=== PATIENT | male | born 1955 | race Caucasian/White ===

== ENCOUNTER → 2021-09-05 | Outpatient (CLI) | payer MEDICARE, BC, SELFPAY ==
[2021-09-05 12:39] LABS: Erythrocyte Sedimentation Rate 11 mm/hr (0-20)
[2021-09-05 12:41] LABS: Absolute Lymphocyte Count 0.96 X10^3/uL (0.83-4.51); Absolute Neutrophil Count 2.4 X10^3/uL (2.0-7.7); Basophil# 0.05 X10^3/uL; Basophil% 1.3 % (0-1); Eosinophil# 0.02 X10^3/uL; Eosinophils% 0.5 % (0-5); Hematocrit 36.3 % (40-54); Hemoglobin 12.3 g/dL (13.0-16.5); Lymphocyte # 0.96 X10^3/ul (0.83-4.51); Lymphocyte % 25.1 % (19-41); Mean Corp Hgb Conc 33.9 g/dL (32-36); Mean Corpuscular Hgb 34.4 pg (27.0-32.0); Mean Corpuscular Volume 101.4 fL (80-94); Mean Platelet Vol. 11.2 fl (6.2-12.0); Monocyte# 0.34 X10^3/uL; Monocyte% 8.9 % (0-10); NRBC Flagged by Analyzer 0 % (0-5); Neutrophil # 2.42 X10^3/uL (2.7-7.7); Neutrophil % 63.2 % (47-70); Platelet Count 118 K/mm3 (150-450); RBC Distribution Width CV 12.7 % (11.6-14.6); RBC Distribution Width SD 47.8 fl (35.1-43.9); Red Blood Count 3.58 M/mm3 (4.6-6.2); White Blood Count 3.8 K/mm3 (4.4-11.0)
[2021-09-05 13:03] LABS: CRP 5.72 mg/L (0.0-3.0); Ferritin 474 ng/mL (26-388); Iron 115 ug/dL (65-175); Iron Binding Capacity,Total 313 ug/dL (250-450)
[2021-09-06 16:09] LABS: Endomysial Antibody IgA Negative (Negative)
[2021-09-06 21:11] LABS: Immunoglobulin A 178 mg/dL (61-437); t-Transglutaminase IgA <2 U/mL (0-3)
== END | disposition home or self-care (01) ==
LOC: LAB 11:23
PROVIDERS: PCP Physician Assistant; Referring Provider Nurse Practitioner Adult Health; Visit Provider Nurse Practitioner Adult Health
DX: K52.9 Noninfective gastroenteritis and colitis, unspecified (principal); D64.9 Anemia, unspecified
CPT/HCPCS: 36415; 82728; 82784; 83516; 83540; 83550; 85025; 85652; 86140; 86255

== ENCOUNTER → 2021-09-14 | Outpatient (CLI) | payer MEDICARE, BC, SELFPAY ==
[2021-09-16 20:11] LABS: Giardia Lamblia, Stool EIA Negative (Negative)
[2021-09-20 12:10] LABS: Calprotectin, Stool 24 ug/g (0-120)
== END | disposition home or self-care (01) ==
LOC: LABSPEC 08:27
PROVIDERS: PCP Physician Assistant; Visit Provider Nurse Practitioner Adult Health
DX: K58.9 Irritable bowel syndrome, unspecified (principal); K62.7 Radiation proctitis
CPT/HCPCS: 83630; 83993; 87177; 87209; 87329; 87493; 87506

== ENCOUNTER → 2021-10-09 | Outpatient (CLI) | payer MEDICARE, BC, SELFPAY ==
--- NOTE | 2021-10-09 07:58 | CT_ITS ---
STUDY: CT ABDOMEN AND PELVIS WITH CONTRAST REASON FOR EXAM: Male, 66 years old. Diarrhea, hx rectal cancer, pancytopenia -- oral and iv RADIATION DOSAGE (If Supplied By Facility): CTDIvol = ( 13.15 ) mGy, DLP = ( 847.37 ) mGycm TECHNIQUE: Transaxial images were obtained from the dome of the diaphragm to the symphysis pubis with oral contrast. Oral and amp;amp;amp; IV Gastrografin and amp;amp;amp; 100mL Isovue-300 was administered. Sagittal and coronal images were reconstructed. Individualized dose optimization techniques were used for this CT. COMPARISON: Comparison is made with prior ultrasound done earlier today. FINDINGS: The visualized lung bases are unremarkable. The visualized portions of the heart are within normal limits. Normal liver. Normal gallbladder and extrahepatic biliary system. There are multiple benign calcified granulomata of the spleen. Normal pancreas. Normal bilateral adrenal glands. Normal right kidney. Normal left kidney. Normal visualized stomach. Normal small intestine. There are multiple colonic diverticula consistent with diverticulosis. Diffuse circumferential wall thickening of the rectum worse on the right side. The appendix is visualized and appears normal. Normal abdominal aorta. Normal inferior vena cava. There is borderline retroperitoneal lymphadenopathy with enlarged nodes no greater than 10mm in the short axis diameter. Mild degree of diffuse bladder wall thickening. The prostate measures 3.7 cm x 4 cm. Normal abdominal wall. There are mild degenerative changes of the visualized lumbar spine. CT/Abdomen/Pelvis WITH Contrast IMPRESSION: Diffuse circumferential wall thickening of the rectum worse on the right side. Electronically Signed: Estiven Cummins MD at 14:33 EDT ,
--- NOTE | 2021-10-09 07:58 | US_ITS ---
STUDY: ABDOMINAL ULTRASOUND - RIGHT UPPER QUADRANT REASON FOR VISIT: Male, 66 years old pancytopenia, diarrhea -- RUQ TECHNIQUE: Ultrasound evaluation of the right upper quadrant was performed with real-time and static jane-scale imaging. TECHNICAL QUALITY: Adequate. COMPARISON: None. FINDINGS: Liver: The liver measures 16.2 cm. There is normal echogenicity of the liver. The bile ducts are within normal limits. There is hepatic color flow. The direction of portal flow is hepatopetal. There is no demonstrated mass lesion. Gallbladder: Normal distended gallbladder. The gallbladder wall measures 2.5 mm. There is a negative sonographic Augustin''s sign. There is no pericholecystic fluid. There are no gallstones. Common Bile Duct (C.B.D.): The common bile duct measures 2. mm. Pancreas: Normal size of the head, body and tail of the pancreas. There is increased echogenicity of the pancreas. There is no demonstrated pancreatic mass or cyst. Right Kidney: Normal size of the right kidney. The right kidney measures 10.7 cm x 5.7 cm x 5.4 cm. Normal renal cortex. The right cortex measures 1.4 cm. There is no demonstrated renal mass or cyst. There is no right hydronephrosis. US/Abdomen Limited IMPRESSION: Normal right upper quadrant ultrasound examination. Electronically Signed: Estiven Cummins MD at 10:19 EDT ,
[2021-10-09 11:00] LABS: CREATININE FINGERSTICK < 0.9 mg/dL (0.70-1.30); EGFR FINGERSTICK > 60.0000 mL/min (>60)
[2021-10-09 11:42] LABS: Absolute Lymphocyte Count 0.75 X10^3/uL (0.83-4.51); Absolute Neutrophil Count 2.8 X10^3/uL (2.0-7.7); Basophil# 0.03 X10^3/uL; Basophil% 0.8 % (0-1); Hematocrit 35.5 % (40-54); Lymphocyte # 0.75 X10^3/ul (0.83-4.51); Lymphocyte % 19.1 % (19-41); Mean Corp Hgb Conc 33.8 g/dL (32-36); Mean Corpuscular Hgb 34.4 pg (27.0-32.0); Mean Corpuscular Volume 101.7 fL (80-94); Mean Platelet Vol. 10.8 fl (6.2-12.0); Monocyte# 0.28 X10^3/uL; Monocyte% 7.1 % (0-10); NRBC Flagged by Analyzer 0 % (0-5); Neutrophil # 2.81 X10^3/uL (2.7-7.7); Neutrophil % 71.7 % (47-70); Platelet Count 113 K/mm3 (150-450); RBC Distribution Width CV 13.2 % (11.6-14.6); RET-HE 36.8 pg (30-35); Red Blood Count 3.49 M/mm3 (4.6-6.2); Reticulocyte Count 3.26 % (0.5-1.5); White Blood Count 3.9 K/mm3 (4.4-11.0)
[2021-10-09 11:49] LABS: International Normalized Ratio 1.1; Prothrombin Time (Protime)PT. 14.3 SECONDS (11.7-14.9)
[2021-10-09 12:00] LABS: Hemoglobin A1c 7.7 % (3.8-5.6)
[2021-10-09 12:50] LABS: ALB/GLOB Ratio 1.4 RATIO (0.9-2.4); AST(SGOT) 24 U/L (15-37); Alanine Aminotransfer ALT/SGPT 28 U/L (16-61); Albumin, Serum 4.1 g/dL (3.2-5.0); Alkaline Phosphatase 62 U/L (45-117); Anion Gap 7 (5-15); BUN 15 mg/dL (7-18); BUN/Creat Ratio 16.7 RATIO (10-20); Chloride 102 mmol/L (98-107); EST Glomerular Filtration Rate 89 mL/min (>60); Est Glom Filt Rate - Afr Amer 108 mL/min (>60); Free T3 2.3 pg/mL (2.18-3.98); Glucose 196 mg/dL (74-106); LDH 202 U/L (87-241); Potassium 3.9 mmol/L (3.5-5.1); Protein, Total 7.1 g/dL (6.4-8.2); Sodium Level 137 mmol/L (136-145); T4 Free Direct 1.03 ng/dL (0.76-1.46); Thyroid Stim Hormone (TSH) 2.08 uIU/mL (0.358-3.74)
[2021-10-09 13:28] LABS: Vitamin B12 660 pg/mL (211-911)
[2021-10-10 14:08] LABS: Anti-Centromere B Ab <0.2 AI (0.0-0.9); Anti-Chromatin <0.2 AI (0.0-0.9); Anti-Jo <0.2 AI (0.0-0.9); Anti-Scleroderma-70 AB <0.2 AI (0.0-0.9); RNP Ab <0.2 AI (0.0-0.9); SJOGREN'S Anti-SS-A test < 0.2 AI (0.0-0.9); SJOGREN'S Anti-SS-B test < 0.2 AI (0.0-0.9); Smith Ab <0.2 AI (0.0-0.9)
[2021-10-10 16:25] LABS: Anti-Mitochondrial AB <20.0 Units (0.0-20.0); Anti-dsDNA Ab 6 IU/mL (0-9)
[2021-10-12 00:07] LABS: Angiotensin Convert Enzyme 39 U/L (14-82); Ceruloplasmin 20.6 mg/dL (16.0-31.0); Cytoplasmic Ab (C-ANCA) <1:20 titer (Neg:<1:20); HEPATITIS B SURFACE AG Negative (Negative); Haptoglobin 80 mg/dL (32-363); Hep C Antibodies <0.1 s/co ratio (0.0-0.9); Hepatitis A IgM Antibody Negative (Negative); Hepatitis B Core AB IgM Negative (Negative)
[2021-10-12 16:27] LABS: Anti-Smooth Muscle ABS 6 Units (0-19); Copper, Serum or Plasma 94 ug/dL (69-132); Perinuclear Ab (P-ANCA) <1:20 titer (Neg:<1:20); Transferrin 255 mg/dL (177-329)
== END | disposition home or self-care (01) ==
PROVIDERS: PCP Physician Assistant; Referring Provider Nurse Practitioner Adult Health; Visit Provider Nurse Practitioner Adult Health
DX: K52.9 Noninfective gastroenteritis and colitis, unspecified (principal); D61.818 Other pancytopenia; R10.11 Right upper quadrant pain
CPT/HCPCS: 36415; 74177; 76705; 80053; 80074; 82164; 82390; 82525; 82607; 82746; 83010; 83036; 83516; 83615; 84439; 84443; 84466; 84481; 85025; 85045; 85610; 86225; 86235; 86256; Q9967

== ENCOUNTER → 2021-11-02 | Outpatient (CLI) | payer MEDICARE, BC, SELFPAY ==
[2021-11-02 15:28] LABS: Ferritin 503 ng/mL (26-388)
== END | disposition home or self-care (01) ==
PROVIDERS: PCP Physician Assistant; Visit Provider Internal Medicine Pulmonary Disease
DX: E11.9 Type 2 diabetes mellitus without complications (principal)
CPT/HCPCS: 36415; 82728

== ENCOUNTER 2021-12-11 06:40 | Day surgery (SDC) | payer MEDICARE, BC, SELFPAY ==
[2021-12-11] VITALS (7 sets, daily range): BP systolic 96–132; BP diastolic 60–71; PULSE 57–68; RESP 14–16; TEMP 36.3–36.8; O2SAT 95–97; BMI 25.9
--- NOTE | 2021-12-11 | GASB_PTH ---
PATIENT: STEVEN GREGORIO LOC: EN U#:[id number] AGE/SX: 66/M ROOM: RE12/11/[address]: Dr. Milton Reynaga DO : 1955 BED: DIS: 12/11/2021 SPEC #: [id number] RECD: 12/11/21 10:52 STATUS: TEO CORRINA #: [id number] LEXUS: 12/11/21 00:[address]: Milton Reynaga DEPT: SURGICAL PATHOLOGY RECD BY: Abraham Cannon ENTERED: 12/11/21 10:52 SP TYPE: Gastric Bx OTHR DR: MIRNA Maldonado Tissues: A - Gastric mucous membrane B - Esophageal mucous membrane C - Ileum, NOS D - COLON BIOPSY E - Rectum, NOS Procedures: Special Stain Group II Surgery Specimen Level IV Iron Stain (control) Alcian Blue/PAS (control) HEADER OPERATION: Colonoscopy, [place] [place] PRE[place]OP DIAGNOSIS: Chronic diarrhea, history of rectal cancer TISSUE SUBMITTED: A ? Gastric body biopsy, B ? Distal esophagus biopsy, C ? Terminal ileum biopsy, D ? Random colonic biopsy, E ? Rectum biopsy MICROSCOPIC DIAGNOSIS A. Gastric body, biopsy: Mild gastritis. See microscopic description and comment. B. Distal esophagus, biopsy: Fragments of gastroesophageal mucosa with moderate chronic inflammation, congestion and hemorrhage. Intestinal metaplasia (goblet cell metaplasia) not identified. See comment. C. Terminal ileum, biopsy: Fragments of small intestinal mucosa, no pathologic diagnosis. D. Colon, random biopsy: Fragments of colonic mucosa, no pathologic diagnosis. E. Rectum, biopsy: Fragments of colonic mucosa, no pathologic diagnosis. SJ:rg 12/12/2021 COMMENT A. The results of immunohistochemistry for Helicobacter pylori will be reported separately ([id number]). B. Alcian blue/PAS stain with matched control is used in the evaluation of the specimen. MICROSCOPIC DESCRIPTION Slides are reviewed. A. The specimen shows fragments of gastric mucosa with chronic inflammatory cell infiltrates in the lamina propria consisting of lymphocytes and plasma cells, consistent with mild chronic gastritis. Mild mucosal congestion and hemorrhage are also noted. Focal area also shows old hemorrhage. Iron stain with matched control was used in the evaluation of the specimen. GROSS DESCRIPTION A - Received in fixative is one container labeled with the patient's name and designated gastric body biopsy. The specimen consists of two irregular fragments of light sampson soft tissue that in aggregate measure 0.8 x 0.5 x 0.1 cm. The specimen is totally submitted in one cassette. B - Received in fixative is one container labeled with the patient's name and designated distal esophagus biopsy. The specimen consists of multiple irregular fragments of light sampson soft tissue that in aggregate measure 1 x 0.5 x 0.1 cm. The specimen is totally submitted in one cassette. C - Received in fixative is one container labeled with the patient's name and designated terminal ileum biopsy. The specimen consists of two irregular fragments of light sampson soft tissue that in aggregate measure 0.8 x 0.4 x 0.1 cm. The specimen is totally submitted in one cassette. D - Received in fixative is one container labeled with the patient's name and designated random colonic biopsy. The specimen consists of multiple irregular fragments of light sampson soft tissue that in aggregate measure 2 x 0.6 x 0.1 cm. The specimen is totally submitted in one cassette. E - Received in fixative is one container labeled with the patient's name and designated rectum biopsy. The specimen consists of multiple irregular fragments of light sampson soft tissue that in aggregate measure 1 x 0.5 x 0.1 cm. The specimen is totally submitted in one cassette. / SJ:rg 12/11/2021 TC:3 [facility]: [id number] x5, [id number] x2
[2021-12-11] MEDS: Lactated Ringers 1,000 ML 15 ML IV (07:09)
--- NOTE | 2021-12-11 07:16 | PCM.HP.BLA ---
History and Physical Date of Admission: 12/11/21 STEVEN GREGORIO, is a 66 M who presents to the office today to establish with GI for chronic urgent diarrhea following history of rectal cancer.? This is a chronic issue, it has not gotten worse necessarily but it is certainly bothersome.? He last saw a electronic repair troubleshooter 2 years ago, he was told colonoscopy was normal, would like to establish with a new electronic repair troubleshooter. Hx of rectal cancer in 2003, treated with surgery, chemotherapy and radiation at [facility].? His lower GI complaints began approximately 15 years ago. He c/o bowel urgency and frequency every morning, stool is not usually formed, stool is usually soft and small amounts, feels better once rectum is completely emptied out.? Has multiple BMs in order to empty.? Stool gets more liquid each time he goes during the day. Some days he has cramps too. Can have blood in the stool.? No nocturnal diarrhea.? He says he never has constipation or has to strain. Has tried changing diet w/o relief. Goes to a restaurant every morning, can't always make it home w/o having urgent BM. Needed cauterization more than once for rectal bleeding, last time was more than 10 yrs ago.? Has rectal bleeding after heavy lifting. He has prn dicyclomine, not sure if it helps, he doesn't take it often.? He does not have any abdominal pain per se, just the cramping. He denies nausea, vomiting, heartburn, difficulty swallowing. Good appetite. Weight is stable. He keeps very active physically. 08/10/21 CMP normal 06/2020 hgb 10.3 when he had Covid 2019 CT w/ IV and oral contrast at [place]--scattered diverticula in colon [address] Teodoro Villa at [place]--small diverticula in colon , mild colitis but no biopsies [address] Bee--results not available ROS Const Constitutional: Positive for fatigue ENT ENT: No difficulty swallowing Gastro GI: Positive for abdominal pain, bloating, diarrhea, excessive flatus and Blood in stool; No belching, change in bowel habits, change in stool character, coffee ground emesis, constipation, cramping, heartburn, difficulty swallowing, feeling full early, incontinent of stools, Vomiting blood/hematemesis, loose stools, Black,tarry stools, nausea/dyspepsia, pain with swallowing, vomiting or other Musc Musculoskeletal: Positive for restless legs and leg pain at night; No joint pain Skin Skin: No yellowing of the eye or itchy eyes Neuro Neurology: Positive for restless legs Psych Psychiatric: No anxiety and No depression Endo Endocrine: Positive for fatigue Aller/Imm Allergy/Immunologic: No itchy eyes Sander/Lymp Hematologic/Lymphatic: No easy bleeding or easy bruising Exam Const General: cooperative, healthy appearing, well developed and well groomed Nutritional Appearance: average body habitus Eyes General: appearance normal, both eyes and all related structures Resp Effort & Inspection: normal respiratory effort GI Inspection: normal to inspection Auscultation: normal bowel sounds Palpation: soft, no hepatosplenomegaly, no masses and tender in the LLQ Neuro Speech: speech normal Gait: normal gait Psych Mood: euthymic mood Affect: normal affect Quality Reporting Tobacco Screening ([facility]) Smoking Status: Never smoker Assessment and Plan Assessment and Plan (1) Chronic diarrhea: ?Status:?Chronic (2) History of rectal cancer: ?Status:?Inactive ? ? ? Orders:?Orders: ? Calprotectin, Stool Today K52.9 ? ? Ova and Parasites 8623 Today K52.9 ? ? CDIFF (PCR) Today K52.9 ? ? Stool Lactoferrin/WBC Today K52.9 ? ? Giardia Lamblia, Stool EIA Today K52.9 ? ? CRP Today K52.9 ? ? Erythrocyte Sed Rate Today K52.9 ? ? Celiac Disease Profile Today K52.9 ?Plan - Rosa Elena Jones CLINICAL PROGRAM COORDINATOR, CLINICAL PROGRAM COORDINATOR-C: 66-year-old male with chronic diarrhea, rectal bleeding, and history of rectal cancer that was treated with surgery, chemotherapy, and radiation in 2003.? Differential diagnosis for his chronic urgent diarrhea includes radiation-induced proctitis, microscopic colitis, SCAD, IBS, IBD.? Case discussed with Dr. Reynaga.? We will get inflammatory markers and blood in stool.? Hemoglobin was low last year when he was hospitalized with COVID; we will get CBC and iron labs.? We will call him with results.? If inflammatory markers are abnormal then we will get imaging.? He will be scheduled for upper and lower endoscopy, needs biopsies from the rectum.? After submitting stool studies he can try colestipol 1 g twice daily for the diarrhea.? Follow-up will be scheduled 2 weeks after endoscopy to discuss biopsy results. Plan Details Other Medications: ?New: ? colestipol 1 g? PO BID 60 tabs 2RF I have re-examined the patient. There are no clinical changes since date of exam.
--- NOTE | 2021-12-11 07:45 | IMM_PTH ---
PATIENT: STEVEN GREGORIO LOC: EN U#:[id number] AGE/SX: 66/M ROOM: RE12/11/[address]: Dr. Milton Reynaga DO : 1955 BED: DIS: 12/11/2021 SPEC #: [id number] RECD: 12/11/21 11:01 STATUS: TEO REMichel #: [id number] LEXUS: 12/11/21 07:[address]: Milton Reynaga DEPT: IMMUNOHISTOCHEMISTRY RECD BY: Rebecca Mello ENTERED: 12/11/21 11:02 SP TYPE: IMMUNO OTHR DR: MIRNA Maldonado Tissues: A - Stomach, NOS Procedures: H Pylori (initial) PHYSICIAN & INSTITUTION [place] [id number] SPECIMEN INFORMATION: Tissue Source: A ? Gastric body biopsy Clinical Info: Chronic diarrhea, history of rectal cancer Specimen Number: [id number] CPT code: 01201 METHODOLOGY: Deparaffinized sections of prefer/formalin-fixed tissue or PAP/DQ stained slides are incubated with monoclonal/polyclonal antibodies/oligonucleotide probes. Localization is made via biotin free immunoperoxidase method. Appropriate controls are performed and reacted as expected. Results on target cell population are indicated in the following table: RESULTS: ANTIBODY / CLONE RESULT Block A H Pylori (polyclonal) negative These tests were developed and their performance characteristics determined by [facility]. They may not have been cleared or approved by the U.S. Food and Drug Administration. The FDA has determined that such clearance or approval is not necessary. The above immunohistochemical/dualISH markers are ordered and reviewed by the Pathologist. INTERPRETATION: A. Gastric body, biopsy: Negative for Helicobacter pylori organisms. RAYMUNDO:adelina 12/12/2021
--- NOTE | 2021-12-11 08:17 | OP.EGD_ITS ---
Patient Name: Chuckie Sheppard Procedure Date: 12/11/2021 7:39 AM Date of : 1955 Age: 66 Procedure: Upper GI endoscopy Indications: Suspected esophageal reflux Providers: Milton Reynaga DO Referring MD: Hai Maldonado Medicines: Monitored Anesthesia Care Patient Profile: This is a 66 year old male. Refer to note in patient chart for documentation of history and physical. Patient has symptoms. The symptoms first began within the past few months. He is status post colonoscopy for polyp removal. Complications: No immediate complications. Procedure: Pre-Anesthesia Assessment: - Prior to the procedure, a History and Physical was performed, and patient medications and allergies were reviewed. The risks and benefits of the procedure and the sedation options and risks were discussed with the patient. All questions were answered and informed consent was obtained. Patient identification and proposed procedure were verified by the physician in the pre-procedure area. Mental Status Examination: alert and oriented. Airway Examination: normal oropharyngeal airway and neck mobility. Respiratory Examination: clear to auscultation. CV Examination: normal. Prophylactic Antibiotics: The patient does not require prophylactic antibiotics. Prior Anticoagulants: The patient has taken no previous anticoagulant or antiplatelet agents. ASA Grade Assessment: II - A patient with mild systemic disease. After reviewing the risks and benefits, the patient was deemed in satisfactory condition to undergo the procedure. The anesthesia plan was to use monitored anesthesia care (MAC). Immediately prior to administration of medications, the patient was re-assessed for adequacy to receive sedatives. The heart rate, respiratory rate, oxygen saturations, blood pressure, adequacy of pulmonary ventilation, and response to care were monitored throughout the procedure. The physical status of the patient was re-assessed after the procedure. After obtaining informed consent, the endoscope was passed under direct vision. Throughout the procedure, the patient's blood pressure, pulse, and oxygen saturations were monitored continuously. The was introduced through the mouth, and advanced to the second part of duodenum. The upper GI endoscopy was accomplished without difficulty. The patient tolerated the procedure well. Scope In: 7:51:06 AM Scope Out: 7:56:27 AM Total Procedure Duration Time 0 hours 5 minutes 21 seconds Findings: There were esophageal mucosal changes suspicious for short-segment Veras's esophagus present in the lower third of the esophagus. The maximum longitudinal extent of these mucosal changes was 3 cm in length. Mucosa was biopsied with a cold forceps for histology in a targeted manner at intervals of 1 cm in the lower third of the esophagus. One specimen bottle was sent to pathology. Verification of patient identification for the specimen was done. Estimated blood loss was minimal. A medium-sized hiatal hernia was present. Patchy moderate inflammation characterized by erosions and erythema was found in the gastric body. Biopsies were taken with a cold forceps for histology. Verification of patient identification for the specimen was done. Estimated blood loss was minimal. The second portion of the duodenum was normal. Impression: - Esophageal mucosal changes suspicious for short-segment Veras's esophagus. Biopsied. - Medium-sized hiatal hernia. - Gastritis. Biopsied. - Normal second portion of the duodenum. Recommendation: - Await pathology results. - Repeat upper endoscopy in 1 year for surveillance based on pathology results. - Continue present medications. Procedure Code(s): --- Professional --- 90863, Esophagogastroduodenoscopy, flexible, transoral; with biopsy, single or multiple CPT copyright 2017 [employer]. All rights reserved. The codes documented in this report are preliminary and upon network developer review may be revised to meet current compliance requirements. Milton Reynaga DO 12/11/2021 8:16:58 AM This report has been signed electronically. Number of Addenda: 0 Note Initiated On: 12/11/2021 7:39 AM
--- NOTE | 2021-12-11 08:17 | OP.CCLET_ITS ---
12/11/2021 Hai Maldonado Re : Upper GI endoscopy procedure for Chuckie Sheppard Anyi Tenorio This procedure was performed on Saturday, December 11, 2021. My impressions and recommendations are as follows: Impressions : - Esophageal mucosal changes suspicious for short-segment Veras's esophagus. Biopsied. - Medium-sized hiatal hernia. - Gastritis. Biopsied. - Normal second portion of the duodenum. Recommendations : - Await pathology results. - Repeat upper endoscopy in 1 year for surveillance based on pathology results. - Continue present medications. My findings are described in the full procedure note, which is enclosed. If I can be of further assistance, please feel free to contact me at . Sincerely, Milton Reynaga, 12/11/2021 8:16:58 AM This report has been signed electronically.
--- NOTE | 2021-12-11 08:23 | OP.COLON_ITS ---
Patient Name: Chuckie Sheppard Procedure Date: 12/11/2021 7:56 AM Date of : 1955 Age: 66 Procedure: Colonoscopy Indications: High risk colon cancer surveillance: Personal history of colon cancer, Incidental - Chronic diarrhea Providers: Milton Reynaga DO Referring MD: Hai Maldonado Medicines: Monitored Anesthesia Care Patient Profile: This is a 66 year old male. Refer to note in patient chart for documentation of history and physical. Patient has symptoms. The symptoms first began within the past few months. He is status post colonoscopy for polyp removal. Two adenomas were found on the previous colonoscopy. Last Colonoscopy: 3 years ago. Complications: No immediate complications. Procedure: Pre-Anesthesia Assessment: - Prior to the procedure, a History and Physical was performed, and patient medications and allergies were reviewed. The risks and benefits of the procedure and the sedation options and risks were discussed with the patient. All questions were answered and informed consent was obtained. Patient identification and proposed procedure were verified by the physician in the pre-procedure area. Mental Status Examination: alert and oriented. Airway Examination: normal oropharyngeal airway and neck mobility. Respiratory Examination: clear to auscultation. CV Examination: normal. Prophylactic Antibiotics: The patient does not require prophylactic antibiotics. Prior Anticoagulants: The patient has taken no previous anticoagulant or antiplatelet agents. ASA Grade Assessment: II - A patient with mild systemic disease. After reviewing the risks and benefits, the patient was deemed in satisfactory condition to undergo the procedure. The anesthesia plan was to use monitored anesthesia care (MAC). Immediately prior to administration of medications, the patient was re-assessed for adequacy to receive sedatives. The heart rate, respiratory rate, oxygen saturations, blood pressure, adequacy of pulmonary ventilation, and response to care were monitored throughout the procedure. The physical status of the patient was re-assessed after the procedure. After I obtained informed consent, the scope was passed under direct vision. Throughout the procedure, the patient's blood pressure, pulse, and oxygen saturations were monitored continuously. The Colonoscope was introduced through the anus and advanced to the terminal ileum. The colonoscopy was performed without difficulty. The patient tolerated the procedure well. The quality of the bowel preparation was good. Scope In: 7:58:37 AM Scope Withdrawal Time 0 hours 9 minutes 59 seconds Scope Out: 8:12:13 AM Total Procedure Duration Time 0 hours 13 minutes 36 seconds Findings: The perianal and digital rectal examinations were normal. Multiple small localized angiodysplastic lesions without bleeding were found in the rectum. A localized area of moderately friable mucosa with contact bleeding was found in the rectum. Biopsies were taken with a cold forceps for histology. Verification of patient identification for the specimen was done. Estimated blood loss was minimal. An area of mildly congested mucosa was found in the sigmoid colon, at the splenic flexure, in the transverse colon, at the hepatic flexure and in the ascending colon. Biopsies were taken with a cold forceps for histology. Verification of patient identification for the specimen was done. Estimated blood loss was minimal. The terminal ileum appeared normal. Biopsies were taken with a cold forceps for histology. Verification of patient identification for the specimen was done. Estimated blood loss was minimal. Multiple small and large-mouthed diverticula were found in the recto-sigmoid colon, sigmoid colon, descending colon and hepatic flexure. Impression: - Multiple non-bleeding colonic angiodysplastic lesions. - Friability with contact bleeding in the rectum. Biopsied. - Congested mucosa in the sigmoid colon, at the splenic flexure, in the transverse colon, at the hepatic flexure and in the ascending colon. Biopsied. - The examined portion of the ileum was normal. Biopsied. Recommendation: - Discharge patient to home. - Resume previous diet. - Continue present medications. - Await pathology results. - Repeat colonoscopy in 5 years for surveillance based on pathology results. Procedure Code(s): --- Professional --- 59652, Colonoscopy, flexible; with biopsy, single or multiple CPT copyright 2017 [employer]. All rights reserved. The codes documented in this report are preliminary and upon medical insurance coder review may be revised to meet current compliance requirements. Milton Reynaga DO 12/11/2021 8:22:27 AM This report has been signed electronically. Number of Addenda: 0 Note Initiated On: 12/11/2021 7:56 AM
--- NOTE | 2021-12-11 08:23 | OP.CCLET_ITS ---
12/11/2021 Hai Maldonado Re : Colonoscopy procedure for Chuckie Sheppard Natr Coby This procedure was performed on Saturday, December 11, 2021. My impressions and recommendations are as follows: Impressions : - Multiple non-bleeding colonic angiodysplastic lesions. - Friability with contact bleeding in the rectum. Biopsied. - Congested mucosa in the sigmoid colon, at the splenic flexure, in the transverse colon, at the hepatic flexure and in the ascending colon. Biopsied. - The examined portion of the ileum was normal. Biopsied. Recommendations : - Discharge patient to home. - Resume previous diet. - Continue present medications. - Await pathology results. - Repeat colonoscopy in 5 years for surveillance based on pathology results. My findings are described in the full procedure note, which is enclosed. If I can be of further assistance, please feel free to contact me at . Sincerely, Milton Reynaga, 12/11/2021 8:22:27 AM This report has been signed electronically.
== END 2021-12-11 08:56 | disposition home or self-care (01) ==
LOC: EN 06:41 → AC 06:42
PROVIDERS: PCP Physician Assistant; Referring Provider Physician Assistant; Visit Provider Internal Medicine Gastroenterology
PROC: 0DJD8ZZ Inspection of Lower Intestinal Tract, Via Natural or Artificial Opening Endoscopic (ICD-10-PCS; CPT 45378; principal; 2021-12-11 07:40)
DX: K20.90 Esophagitis, unspecified without bleeding (principal); K63.89 Other specified diseases of intestine; K31.89 Other diseases of stomach and duodenum; K62.5 Hemorrhage of anus and rectum; K57.30 Diverticulosis of large intestine without perforation or abscess without bleeding; K29.50 Unspecified chronic gastritis without bleeding; K44.9 Diaphragmatic hernia without obstruction or gangrene; Z79.899 Other long term (current) drug therapy; Z86.16 Personal history of COVID-19
CPT/HCPCS: 43239; 45380; 87493; 87506; 88305; 88313; 88342; J7120; J2405

== ENCOUNTER → 2022-02-07 | Outpatient (CLI) | payer MEDICARE, BC, SELFPAY ==
--- NOTE | 2022-02-07 06:11 | MRI_ITS ---
EXAM: MR PELVIS WITHOUT AND WITH INTRAVENOUS CONTRAST CLINICAL INDICATION: urgent diarrhea, fecal incontinence, hx rectal CA TECHNIQUE: Multiplanar and multisequence MR images of the pelvis without and with intravenous contrast. This report was created using [employer] technology. CONTRAST: IV 15ml Clariscan COMPARISON: None. FINDINGS: BOWEL: 8 mm rectal wall thickening some of which is related to prominent amount of submucosal fat deposition. No discrete evidence of a rectal mass. APPENDIX: No evidence of acute appendicitis. INTRAPERITONEAL SPACE: Normal. No ascites or other fluid collection. BLADDER: Normal. REPRODUCTIVE: Unremarkable as visualized. No mass. BONES/JOINTS: Normal. No suspicious lytic or blastic abnormality. SOFT TISSUES: Normal. No pelvic wall hernia. LYMPH NODES: No perirectal lymphadenopathy. MRI/Pelvis W/WO Contrast IMPRESSION: No evidence of a rectal mass. Electronically Signed: Andrew Vickers MD at 9:48 EST ,
[2022-02-07 07:01] LABS: EGFR FINGERSTICK > 60.0000 mL/min (>60)
== END | disposition home or self-care (01) ==
LOC: MRI 06:11
PROVIDERS: PCP Physician Assistant; Referring Provider Nurse Practitioner Adult Health; Visit Provider Nurse Practitioner Adult Health
DX: R15.9 Full incontinence of feces (principal)
CPT/HCPCS: 72197; A9575